=== PATIENT | male | born 1985 | race Caucasian/White ===

== ENCOUNTER 2020-05-24 19:08 | Observation (INO) | payer OTHER ==
[~2020-05-24] VITALS: Ht 175.3 cm; Wt 88.9 kg
[2020-05-24] MEDS ORDERED: ONDANSETRON PF 4 MG/2 ML VIAL. IVP PRN (21:00)
[2020-05-24] MEDS ORDERED: ACETAMINOPHEN 325 MG TABLET PO PRN (21:00)
--- NOTE | 2020-05-24 21:10 | PHYS DOC ---
Past History Past Medical History: No Pertinent History Past Surgical History: No Surgical History Alcohol Use: None General Adult EDM: Chief Complaint: OVERDOSE HPI: HPI: Patient is a[age]-year-old male brought by EMS for being found unresponsive and apneic in snf. Patient admitted to taking an unknown quantity of unknown substance. Patient states that he was not suicidal but just wanted to take the pills. Per report from present staff there is been some "bad fentanyl" going around. Patient was given 6 mg of intranasal Narcan at 1625 and woke up. On scene bystanders started CPR and bag valve mask. Review of Systems: Review of Systems: Constitutional: Denies fever or chills Eyes: Denies change in visual acuity HENT: Denies nasal congestion or sore throat Respiratory: Denies cough or shortness of breath Cardiovascular: Denies chest pain or edema GI: Denies abdominal pain, nausea, vomiting, bloody stools or diarrhea : Denies dysuria Musculoskeletal: Denies back pain or joint pain Integument: Denies rash Neurologic: Denies headache, focal weakness or sensory changes Endocrine: Denies polyuria or polydipsia Lymphatic: Denies swollen glands Psychiatric: Denies depression or anxiety Heart Score: Risk Factors: Risk Factors: DM, Current or recent (<one month) smoker, HTN, HLP, family history of CAD, obesity. Risk Scores: Score 0 - 3: 2.5% MACE over next 6 weeks - Discharge Home Score 4 - 6: 20.3% MACE over next 6 weeks - Admit for Clinical Observation Score 7 - 10: 72.7% MACE over next 6 weeks - Early Invasive Strategies Current Medications: Current Meds: Current Medications Medications (Trade) Dose Ordered Sig/[facility] Start Time Stop Time Status Last Admin Dose Admin Acetaminophen (Tylenol) 650 mg PRN Q4HRS PRN 05/24/20 21:00 05/25/20 20:59 UNV Ondansetron HCl (Zofran) 4 mg PRN Q4HRS PRN 05/24/20 21:00 05/25/20 20:59 UNV Physical Exam: PE: Constitutional: Well developed, well nourished, no acute distress, non-toxic appearance. [] HENT: Normocephalic, atraumatic, bilateral external ears normal, oropharynx moist, no oral exudates, nose normal. [] Eyes: PERRLA, EOMI, conjunctiva normal, no discharge. [] Neck: Normal range of motion, no tenderness, supple, no stridor. [] Cardiovascular:Heart rate regular rhythm, no murmur [] Lungs & Thorax: Bilateral breath sounds clear to auscultation [] Abdomen: Bowel sounds normal, soft, no tenderness, no masses, no pulsatile masses. [] Skin: Warm, dry, no erythema, no rash. [] Back: No tenderness, no CVA tenderness. [] Extremities: No tenderness, no cyanosis, no clubbing, ROM intact, no edema. [] Neurologic: Alert and oriented X 3, normal motor function, normal sensory function, no focal deficits noted. [] Psychologic: Affect normal, judgement normal, mood normal. [] Current Patient Data: Vital Signs: Vital Signs Date Time Temp Pulse Resp B/P (MAP) Pulse Ox O2 Delivery O2 Flow Rate FiO2 05/24/20 19:15 97.8 79 14 97/57 (70) 96 Room Air EKG: EKG: [] Radiology/Procedures: Radiology/Procedures: [] Course & Med Decision Making: Course & Med Decision Making Plan for observation with telemetry ,pertinent Labs and Imaging studies reviewed. (See chart for details) [] Dragon Disclaimer: Dragon Disclaimer: This electronic medical record was generated, in whole or in part, using a voice recognition dictation system. Departure Departure: Impression: Primary Impression: Overdose, drug Disposition: ADMITTED INPATIENT Admitting Physician: Roldan Cabrera Condition: STABLE Referrals: PCP,NO (PCP) CEDRIC MAYER MD May 24, 2020 21:10
[2020-05-24] MEDS ORDERED: NALOXONE 0.4 MG/ML VIAL. IV PRN (21:30)
[2020-05-24 21:48] LABS: BASO % 0 % (0-3); EOS % 0 % (0-3); HEMATOCRIT 39.7 % (39.0-53.0); HEMOGLOBIN 13.4 g/dL (13.0-17.5); LYMPH # 1.1 x10^3/uL (1.0-4.8); LYMPH % 10 % (24-48); MEAN CORPUSCULAR HEMOGLOBIN 30 pg (25-35); MEAN CORPUSCULAR HGB CONC 34 g/dL (31-37); MEAN CORPUSCULAR VOLUME 90 fL (79-100); MONO # 0.7 x10^3/uL (0.0-1.1); MONO % 6 % (0-9); NEUT # 8.9 x10^3uL (1.8-7.7); NEUT % 83 % (31-73); PLATELET COUNT 166 x10^3/uL (140-400); RED BLOOD COUNT 4.43 x10^6/uL (4.30-5.70); RED CELL DISTRIBUTION WIDTH 13.3 % (11.5-14.5); WHITE BLOOD COUNT 10.7 x10^3/uL (4.0-11.0)
[2020-05-24 21:58] LABS: BARBITURATES NEG (NEG); BENZODIAZEPINES NEG (NEG); CANNABINOIDS NEG (NEG); COCAINE NEG (NEG); METHADONE NEG (NEG); OPIATES NEG (NEG); PHENCYCLIDINE NEG (NEG)
[2020-05-24 21:59] LABS: AMPHETAMINE/METHAMPHETAMINE NEG (NEG)
[2020-05-24 22:01] LABS: CREATININE 0.9 mg/dL (0.7-1.3); GFR 96.6; POTASSIUM 4.3 mmol/L (3.5-5.1)
[2020-05-24 22:14] LABS: ACETAMIN < 2.0 mcg/mL (10-30); SALIC < 2.8 mg/dL (2.8-20.0)
[2020-05-24 22:15] LABS: ETHANOL < 10 mg/dL (0-10)
--- NOTE | 2020-05-24 22:43 | NUR ---
The patient, BRI SENIOR, 35 y/o, M admitted by CAREY BOSWELL MD, was given written information regarding hospital policies, unit procedures and contact persons. Pt arrived to room 121 via gurney, accompanied by [facility], ED staff, and [facility] guards x2. Pt is an inmate. Pt admitted to observation status for dx: overdose. VSS, groggy. Pt is uncooperative with questioning. Pt reports taking an unknown amount of unknown pills. 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 Placed on telemetry, showing NSR with rate in the 60's. Pt shackled to the bed with guards in room. POC discussed, V/U. Pt has no belongings with him.
[2020-05-24 23:08] VITALS: BP 112/75
[2020-05-25 06:08] VITALS: BP 98/60
--- NOTE | 2020-05-25 07:41 | NUR ---
NURSING NOTE PT WAS IN HIS BED THIS AM UPON ASSESSMENT. PT IS A&O X4 THIS AM. PT CALM AND COOPERATIVE WITH CARES THUS FAR DURING ASSESSMENT. PT DENIES ANY SUICIDAL ATTEMPT. PT DENIES TAKING ANYTHING. PT IS NOT SURE WHAT HAPPENED, HOWEVER, STATES ONLY KNOWS WHAT THE GUARDS HAVE TOLD HIM ABOUT THE SITUATION. PT LUNGS CLEAR, ROOM AIR. DENIES COUGH OR SOA. PT DENIES PAIN. PT IS INMATE AT [facility] AND HAS GUARD AT BEDSIDE AND GUARD AT DOORWAY. WILL CONTINUE TO MONITOR. SILVESTRE VIEIRA.
[2020-05-25 10:24] VITALS: BP 112/72
--- NOTE | 2020-05-25 14:45 | HP ---
ADMIT DATE: 05/24/2020 HISTORY OF PRESENT ILLNESS: This is a 35-year-old male patient, an inmate at [facility], who was brought by the EMS for being found unresponsive and apneic in [facility]. The patient admitted to taking an unknown quantity of unknown substance. The patient stated that he was not suicidal, but just wanted to take the pills. Per report from the present staff, there has been some bad fentanyl going around. He was given 6 mg of intranasal Narcan at 1625 and woke up on the scene by standard, started CPR and bag valve mask and by the time he arrived to the Emergency Room, he was awake, alert x 3 with normal motor and sensory function. He was extensively investigated. His lab work was unremarkable and his toxic screen was negative. He was admitted for observation. PAST MEDICAL HISTORY: Unremarkable. PAST SURGICAL HISTORY: Significant for tonsillectomy. ALLERGIES: He has no known drug allergies. MEDICATIONS: He takes Aleve. FAMILY HISTORY: Noncontributory. SOCIAL HISTORY: He is an inmate. Apparently, he does not smoke, drink alcohol, but apparently has been abusing this bad fentanyl according to the guards. PHYSICAL EXAMINATION: GENERAL: On arrival to the Emergency Room, he was well-developed, well-nourished 35-year-old male patient in no acute distress. VITAL SIGNS: His heart rate was 79, blood pressure was 97/57, temperature was 97.8, respiratory rate was 14 and oxygen saturation was 96% on room air. HEAD, EYES, EARS, NOSE AND THROAT: Showed normocephalic, atraumatic. NECK: Supple. CARDIAC: Normal first and second heart sounds. No gallop or murmur. CHEST: Clear to auscultation. No crepitation or rhonchi. ABDOMEN: Distended, soft, nontender. NEUROLOGIC: Apparently, he was alert, oriented x 3 with normal motor and sensory function, no focal deficit. Affect, judgment and mood were normal. LABORATORY DATA: He has no EKG done. However, his white cell count was 10,700, hemoglobin 13.4, hematocrit 39, MCV was 90 and platelet count of 166,000. His chemistry showed a serum sodium 137, potassium 4.3, chloride 103, bicarbonate 28, anion gap of 6, BUN 15, creatinine 0.9, estimated GFR was 96 mL per minute, his glucose was 88 and calcium was 9. Toxic screen was essentially negative. ASSESSMENT AND PLAN: The patient was admitted with an overdose, questionable fentanyl and will be observed and if remains stable, he will be discharged back to the [facility]. JANKI ERAZO MD DR: RADHA/sanjana JOB#: [id number] / [id number]
--- NOTE | 2020-05-25 15:22 | NUR ---
NURSING NOTE DISCHARGE pt discharged back to facility. pt given written and verbal discharge instructions. pt escorted by 2 guards. facility notified. no scripts given. arnav dubon.
--- NOTE | 2020-05-25 19:47 | DS ---
DATE OF DISCHARGE: 05/25/2020 HOSPITAL COURSE: The patient is a 35-year-old, an inmate at [facility], who was brought to the Emergency Room after he was found unresponsive and apneic in custodial. He admitted to taking an unknown quantity of unknown substance. The patient stated that it was not suicidal, but just wanted to take the pills. Per report from present staff, there has been some bad fentanyl going around. The patient was given 6 mg of intranasal Narcan at 6:25 and woke up on the scene by standard, started CPR and bag valve mask. He was observed overnight. PHYSICAL EXAMINATION: When I saw him this afternoon, he was awake, alert, responding appropriately. He denied any complaint. When I examined him, he looked well and was clearly in no apparent respiratory distress. No pallor, jaundice, cyanosis or thyromegaly. No jugular venous distention or limb edema. VITAL SIGNS: Her heart rate was 68, blood pressure was 112/72, temperature was 98.5, respiratory rate was 20, and oxygen saturation was 97%. HEAD, EYES, EARS, NOSE AND THROAT: Showed normocephalic, atraumatic. NECK: Supple. HEART: Showed normal first and second heart sounds. No gallop or murmur. CHEST: Clear to auscultation. No crepitation or rhonchi. ABDOMEN: Distended, soft, nontender. NEUROLOGICALLY: He was grossly intact. All his cranial nerves intact. EXTREMITIES: He moves extremities without difficulty. No lab work done this morning. As he remained hemodynamically stable and afebrile, awake, alert, denied any complaint, a decision was made to discharge him back to [facility] to follow with their physician in clinic there. JANKI ERAZO MD DR: RADHA/sanjana JOB#: [id number] / [id number]
== END 2020-05-25 15:38 | disposition home or self-care (01) ==
LOC: EEVIPCON 19:08 → ER 19:08 → UNDOADMIN 22:00 → 1 SOUTH 22:00
PROVIDERS: ADMIT Hospitalist; ATTEND Hospitalist
DX: T40.411A Poisoning by fentanyl or fentanyl analogs, accidental (unintentional), initial encounter (principal)
CPT/HCPCS: 36415; 80048; 80307; 80329; 85025; 99284; G0378; G0480; G0379

== ENCOUNTER → 2021-03-23 | Outpatient (CLI) | payer OTHER ==
--- NOTE | 2021-03-23 13:01 | RAD ---
EXAM: Bilateral hands, 3 views. HISTORY: Pain. COMPARISON: None. FINDINGS: 3 views of both hands are obtained. There is no acute fracture, dislocation or subluxation. The alignment and joint spaces are unremarkable. There is no foreign body. IMPRESSION: No acute osseous finding. Electronically signed by: Kelle Leger MD (03/23/2021 12:59 PM) [id number]
== END ==
LOC: RAD 12:38
PROVIDERS: ATTEND Physician Assistant
DX: M79.641 Pain in right hand (principal); M79.642 Pain in left hand
CPT/HCPCS: 73130